=== PATIENT | female | born 1940 | race Caucasian/White ===

== ENCOUNTER 2017-03-15 04:51 | Observation (INO) | payer MEDICARE, OTHER ==
[~2017-03-15] VITALS: Ht 172.7 cm; Wt 76.0 kg
[~2017-03-15 04:51] MED LIST: ALENDRONATE70 MG PO; ALLEGRA180 MG PO; AMPICILLIN500 MG PO; ASPIRIN 81 LOW81 MG PO; ASPIRIN LOW81 M1 PO; AUGMENTIN875TAB PO; BACTRIM DS1 TAB PO; BETAMETHASONE V EX; BIOTIN5000 MC2; CALTRATE 600+D; CALTRATE 600+D PO; CENTRUM SILVER PO; CIPROFLOXACIN250 MG PO; CIPROFLOXACN250 MG PO; CIPROFLOXACN500 MG PO; CRANBERRY PO; DIFLUCAN150 MG PO; DULCOLAX SS100 MG PO; FLEXERIL10 MG PO; GABAPENTIN300 MG PO; GLUCOSAMINE500 M1 OR; ISOSORB DIN30 MG OR; ISOSORB MONO30 MG PO; KEFLEX500 MG PO; LISINOPRIL10 MG PO; LOTRISONE EX; MACROBID100 MG OR; MAXEPA1000 M1 PO; MELATONIN1 MG PO; METHOCARBAMOL500 MG PO; MOBIC7.5 MG PO; NASONEX50 MCG/AC; NEURONTIN300 MG PO; NEXIUM40 M1 PO; NEXIUM40 MG PO; NITREK0.4 MG/HR TD; NITROFUR MAC50 MG PO; NITROQUICK0.3 MG SL; NO; PREDNISONE20 MG PO; PREMARIN0.3 MG PO; PRESERVISION PO; PROBIOTIC1 TAB PO; PYRIDIUM200 MG PO; ROCEPHIN 1 GM1 GM IM; ROCEPHIN 2 GM2 GM IM; SIMVASTATIN40 MG PO; STOOL SOFTEN100 MG OR; TRAMADOL HCL50 MG PO; TRIAMCINOLON0.11 EX; VYTORIN 10/401 TAB PO; [UNRECOGNIZED DRUG - OTHER] EX; [UNRECOGNIZED DRUG - OTHER] PO; [UNRECOGNIZED DRUG - OTHER] PO
[2017-03-15 06:10] LABS: HEMATOCRIT 41.6 % (37.0-47.0); IMMATURE GRANULOCYTES 0.2 % (0.0-1.0); MEAN CELL VOLUME 91.4 fL CALC (80.0-100.0); MEAN CORPUSCULAR HGB 30.8 pG CALC (26.0-32.0); MEAN CORPUSCULAR HGB CONC 33.7 g/L CALC (32.0-36.0); NEUT# 2.87 thou/uL (2.00-7.15); RED BLOOD COUNT 4.55 mill/uL (4.20-5.60); RED CELL DISTRI WIDTH 12.5 % (11.5-15.5)
[2017-03-15 06:23] LABS: ALKALINE PHOSPHATASE 99 u/l (38-126); AMYLASE 69 u/l (30-110); ANION GAP 15 (6-22 (CALC)); BILIRUBIN, TOTAL 0.6 mg/dL (0.0-1.4); BUN 21 mg/dL (8-23); BUN/CREATININE RATIO 27 (12-20 (CALC)); CALCIUM 10.8 mg/dL (8.4-10.2); CARBON DIOXIDE 25 mmol/l (22-30); CHLORIDE 106 mmol/l (95-108); CREATININE 0.8 mg/dL (0.5-1.0); GFR > 60 ML/MIN (>=60 (CALC)); GFR FOR AFR.AMER. > 60 ML/MIN (>=60 (CALC)); GLUCOSE 91 mg/dL (82-115); LIPASE 224 u/l (23-300); POTASSIUM 4.3 mmol/l (3.5-5.1); SGOT/AST 56 u/l (9-36); SGPT/ALT 63 u/l (11-66); SODIUM 142 mmol/l (137-146); TOTAL PROTEIN 6.9 g/dL (6.3-8.2)
[2017-03-15 06:33] LABS: ACT PARTIAL THROMBO TIME 25.4 SECONDS (20.0-32.5); INTERNATIONAL NORMALIZED RATIO 0.9 RATIO (0.7-1.3); PROTHROMBIN TIME 9.7 SECONDS (9.0-12.5)
[2017-03-15 06:47] LABS: MYOGLOBIN 42 ng/mL (0 - 62)
[2017-03-15 08:00] LABS: URINE BILIRUBIN - DIPSTICK NEGATIVE (NEGATIVE); URINE CLARITY CLEAR; URINE COLOR YELLOW; URINE GLUCOSE - DIPSTICK NEGATIVE (NEGATIVE); URINE KETONE NEGATIVE (NEGATIVE); URINE NITRITE - DIPSTICK NEGATIVE (Negative); URINE PH 5.5 (4.5-8.0); URINE PROTEIN - DIPSTICK NEGATIVE (NEG-TRACE); URINE SPECIFIC GRAVITY 1.015; URINE UROBILINOGEN - DIPSTICK 0.2 E.U./dL (0.2)
[2017-03-15 08:01] LABS: URINE LEUK ESTERASE SMALL (NEGATIVE)
[2017-03-15 08:05] VITALS: BP 151/66
[2017-03-15 08:10] LABS: URINE BACTERIA RARE hpf; URINE BLOOD DIPSTICK NEGATIVE (NEGATIVE); URINE EPITHELIAL CELLS RARE EPI/hpf (0-FEW); URINE RBC 0-2 RBC/hpf (0-5)
[2017-03-15 11:49] LABS: CHOLESTEROL HDL RATIO 2.7 (<4.4 (CALC))
[2017-03-15] MEDS ORDERED: NEURONTIN300 MG PO (11:52)
[2017-03-15 12:15] LABS: TSH, 3RD GENERATION 2.78 uIU/mL (0.47 - 4.68)
[2017-03-15 12:30] VITALS: BP 147/61
== END 2017-03-15 13:30 | disposition home or self-care (01) ==
LOC: ED 04:51 → ED-I 06:50 → ED 07:08 → ICU 07:09
PROVIDERS: Emergency Medicine; ADMIT Internal Medicine; ATTEND Internal Medicine
DX: R07.2 Precordial pain (principal); M19.90 Unspecified osteoarthritis, unspecified site; I10 Essential (primary) hypertension; K21.9 Gastro-esophageal reflux disease without esophagitis; G62.9 Polyneuropathy, unspecified; E78.5 Hyperlipidemia, unspecified; M70.72 Other bursitis of hip, left hip

== ENCOUNTER 2017-05-10 06:13 | Day surgery (SDC) | payer MEDICARE, OTHER ==
[~2017-05-10] VITALS: Ht 170.2 cm; Wt 75.3 kg
[2017-05-10 07:56] VITALS: BP 146/64
== END 2017-05-10 08:05 | disposition home or self-care (01) ==
LOC: ORM 06:13
PROVIDERS: ATTEND Anesthesiology Pain Medicine
PROC: 3E0T3TZ Introduction of Destructive Agent into Peripheral Nerves and Plexi, Percutaneous Approach (ICD-10-PCS; principal; 2017-05-10)
DX: M54.5 Low back pain (principal); M47.816 Spondylosis without myelopathy or radiculopathy, lumbar region; M46.1 Sacroiliitis, not elsewhere classified

== ENCOUNTER 2017-05-24 06:28 | Day surgery (SDC) | payer MEDICARE, OTHER ==
[2017-05-24 08:30] VITALS: BP 149/68
== END 2017-05-24 08:46 | disposition home or self-care (01) ==
LOC: ORM 06:28
PROVIDERS: ATTEND Anesthesiology Pain Medicine
PROC: 3E0T3TZ Introduction of Destructive Agent into Peripheral Nerves and Plexi, Percutaneous Approach (ICD-10-PCS; principal; 2017-05-24)
PROC: BR161ZZ Fluoroscopy of Lumbar Facet Joint(s) using Low Osmolar Contrast (ICD-10-PCS; 2017-05-24)
DX: M54.5 Low back pain (principal); M47.816 Spondylosis without myelopathy or radiculopathy, lumbar region

== ENCOUNTER 2018-09-05 06:15 | Day surgery (SDC) | payer MEDICARE, OTHER ==
[~2018-09-05] VITALS: Ht 170.2 cm; Wt 76.7 kg
[~2018-09-05 06:15] MED LIST changes: +GABAPENTIN100 MG PO; +MELATONIN PO; +OSTEO BI-FLEX JOINT PO; +TYLENOL120 M1
[2018-09-05 08:40] VITALS: BP 143/69
== END 2018-09-05 08:53 | disposition home or self-care (01) ==
LOC: ORM 06:15
PROVIDERS: ATTEND Surgery
PROC: 0DJ08ZZ Inspection of Upper Intestinal Tract, Via Natural or Artificial Opening Endoscopic (ICD-10-PCS; principal; 2018-09-05)
DX: K44.9 Diaphragmatic hernia without obstruction or gangrene (principal); K22.2 Esophageal obstruction; Q40.2 Other specified congenital malformations of stomach; I10 Essential (primary) hypertension; E78.5 Hyperlipidemia, unspecified; K21.9 Gastro-esophageal reflux disease without esophagitis

== ENCOUNTER 2020-06-01 01:20 | Emergency (ER) | payer MEDICARE, OTHER ==
[~2020-06-01] VITALS: Ht 170.2 cm; Wt 65.0 kg
[2020-06-01] MEDS ORDERED: XALATAN 0.005%2.5 ML OP (02:03)
[2020-06-01] MEDS ORDERED: ESTRADIOL0.1 MG/GM (02:04)
[2020-06-01 03:00] VITALS: BP 155/64
== END 2020-06-01 03:00 | disposition home or self-care (01) ==
LOC: ED 01:20
DX: R04.0 Epistaxis (principal); I10 Essential (primary) hypertension; K21.9 Gastro-esophageal reflux disease without esophagitis; G62.9 Polyneuropathy, unspecified

== ENCOUNTER 2023-01-24 05:38 | Emergency (ER) | payer MEDICARE, OTHER ==
[2023-01-24] VITALS (9 sets, daily range): BP systolic 127–188; BP diastolic 61–81
[~2023-01-24] VITALS: Ht 170.2 cm; Wt 56.0 kg
[~2023-01-24 05:38] MED LIST changes: +ESTRADIOL0.1 MG/GM; +XALATAN 0.005%2.5 ML OP
[2023-01-24 06:11] LABS: BASO% 0.7 % (0-3); EOS% 1.6 % (0-8); HEMATOCRIT 42.8 % (37.0-47.0); HEMOGLOBIN 13.8 g/dl (12.0-16.0); IMMATURE GRANULOCYTES 0.2 % (0.0-5.0); MEAN CELL VOLUME 96.8 fL CALC (80.0-100.0); MEAN CORPUSCULAR HGB 31.2 pG CALC (26.0-32.0); MEAN CORPUSCULAR HGB CONC 32.2 g/dL CAL (32.0-36.0); MONO% 7.4 % (2-13); NEUT# 2.79 thou/uL (2.00-7.15); NEUT% 49.1 % (42-76); RED BLOOD COUNT 4.42 mill/uL (4.20-5.60); RED CELL DISTRI WIDTH 12.7 % (11.5-15.5)
[2023-01-24] MEDS ORDERED: SIMVASTATIN20 M1 (06:16)
[2023-01-24] MEDS ORDERED: ASPIRIN325 MG PO (06:17)
[2023-01-24] MEDS ORDERED: RECLAST5 MG/100 M IV (06:18)
[2023-01-24] MEDS ORDERED: METAMUCIL28 % PO (06:18)
[2023-01-24 06:26] LABS: ALBUMIN 4.3 g/dL (3.2-5.0); ALKALINE PHOSPHATASE 84 u/l (38-126); BILIRUBIN, TOTAL 0.6 mg/dL (0.02-1.3); BUN 9 mg/dL (8-23); BUN/CREATININE RATIO 15 (12-20 (CALC)); CARBON DIOXIDE 26 mmol/l (22-30); CHLORIDE 109 mmol/l (95-108); CREATININE 0.6 mg/dL (0.5-1.0); GFR FOR AFR.AMER. > 60 ML/MIN (>=60 (CALC)); GFR OTHER RACES > 60 ML/MIN (>=60 (CALC)); SGOT/AST 39 u/l (9-36); SODIUM 143 mmol/l (137-146); TOTAL PROTEIN 7.4 g/dL (6.3-8.2)
[2023-01-24 06:28] LABS: ANION GAP 12 (6-22 (CALC)); POTASSIUM 3.6 mmol/l (3.5-5.1)
[2023-01-24 06:46] LABS: URINE BILIRUBIN - DIPSTICK NEGATIVE (NEGATIVE); URINE BLOOD DIPSTICK LARGE (NEGATIVE); URINE COLOR YELLOW; URINE GLUCOSE - DIPSTICK NEGATIVE (NEGATIVE); URINE KETONE NEGATIVE (NEGATIVE); URINE LEUK ESTERASE TRACE (NEGATIVE); URINE UROBILINOGEN - DIPSTICK 0.2 E.U./dL (0.2)
[2023-01-24 06:47] LABS: URINE NITRITE - DIPSTICK NEGATIVE (Negative)
[2023-01-24 06:48] LABS: URINE PROTEIN - DIPSTICK NEGATIVE (NEG-TRACE)
[2023-01-24 06:51] LABS: URINE EPITHELIAL CELLS FEW EPI/hpf (0-FEW); URINE RBC 25-50 RBC/hpf (0-5)
[2023-01-24 06:52] LABS: URINE BACTERIA FEW hpf; URINE CALCIUM OXALATE CRYSTALS FEW lpf
== END 2023-01-24 09:14 | disposition left against medical advice (07) ==
LOC: ED 05:38
PROVIDERS: Emergency Medicine
DX: R07.9 Chest pain, unspecified (principal); I10 Essential (primary) hypertension; K21.9 Gastro-esophageal reflux disease without esophagitis; G62.9 Polyneuropathy, unspecified; Z53.29 Procedure and treatment not carried out because of patient's decision for other reasons; Z79.82 Long term (current) use of aspirin; Z20.822 Contact with and (suspected) exposure to COVID-19

== ENCOUNTER 2023-09-09 11:29 | Emergency (ER) | payer MEDICARE, OTHER ==
[~2023-09-09] VITALS: Ht 170.2 cm; Wt 56.0 kg
[~2023-09-09 11:29] MED LIST changes: +ASPIRIN325 MG PO; +METAMUCIL28 % PO; +RECLAST5 MG/100 M IV; +SIMVASTATIN20 M1
[2023-09-09 12:33] VITALS: BP 211/83
[2023-09-09 12:45] VITALS: BP 194/78
[2023-09-09 13:00] VITALS: BP 179/73
[2023-09-09 14:49] VITALS: BP 179/73
== END 2023-09-09 15:15 | disposition home or self-care (01) ==
LOC: ED 11:29
DX: L89.151 Pressure ulcer of sacral region, stage 1 (principal); I10 Essential (primary) hypertension; G62.9 Polyneuropathy, unspecified